=== PATIENT | male | born 1940 | race Caucasian/White ===

== ENCOUNTER 2017-10-20 13:57 | Inpatient (IN) | payer OTHER ==
[2017-10-20] MEDS: SOD CHLORIDE 0.9% 1,000 ML IV ×2 (18:58→20:05)
[2017-10-20 19:06] LABS: ADD MAN DIFF? NO
[2017-10-20 19:08] LABS: BASOPHILS % 0.2 % (0.0-2.0); HEMATOCRIT 34.9 % (42.0-52.0); HEMOGLOBIN 11.7 g/dl (14.0-18.0); LYMPHOCYTES # 1.4 10^3/ul (0.8-2.9); MEAN CORPUSCULAR HEMOGLOBIN 29.3 pg (29.0-33.0); MEAN CORPUSCULAR HGB CONC 33.5 g/dl (32.0-37.0); MEAN CORPUSCULAR VOLUME 87.3 fl (82.0-101.0); MEAN PLATELET VOLUME 8.9 fl (7.4-10.4); MONOCYTE # 1.3 10^3/ul (0.3-0.9); MONOCYTES % 7.6 % (0.0-11.0); NEUTROPHIL # 14.7 10^3/ul (1.6-7.5); NEUTROPHILS % 83.1 % (39.0-77.0); PLATELET COUNT 244 10^3/UL (140-415); RED CELL DISTRIBUTION WIDTH 13.5 % (11.5-14.5)
[2017-10-20 19:08] LABS: WHITE BLOOD COUNT 17.6 10^3/ul (4.8-10.8)
[2017-10-20 19:16] LABS: ADD UMIC YES; UR ASCORBIC ACID NEGATIVE (NEGATIVE); UR BACTERIA MANY /HPF (NONE SEEN); UR BILIRUBIN (Dip) NEGATIVE (NEGATIVE); UR BLOOD (Dip) 2+ mg/dL (NEGATIVE); UR CLARITY CLOUDY (CLEAR); UR COLOR YELLOW (YELLOW); UR GLUCOSE (Dip) 3+ mg/dL (NEGATIVE); UR KETONES (Dip) NEGATIVE (NEGATIVE); UR LEUKOCYTE ESTERASE (Dip) 3+ Leu/ul (NEGATIVE); UR NITRITE (Dip) POSITIVE (NEGATIVE); UR NONSQUAMOUS EPITHELIAL CELL <1 /HPF (NONE SEEN); UR RBC 18 /HPF (0-5); UR SPECIFIC GRAVITY (Dip) 1.014 (1.003-1.030); UR SQUAMOUS EPITHELIAL CELL FEW /HPF (FEW); UR TOTAL PROTEIN (Dip) 1+ mg/dl (NEGATIVE); UR UROBILINOGEN (Dip) NEGATIVE (NEGATIVE); UR WBC > 182 /HPF (0-5)
[2017-10-20 19:25] LABS: ALANINE AMINOTRANSFERASE 22 IU/L (13-69); ALBUMIN 4.3 g/dl (3.3-4.9); ALBUMIN/GLOBULIN RATIO 1.34; ALKALINE PHOSPHATASE 54 IU/L (42-121); ANION GAP 17 (8-16); ASPARTATE AMINO TRANSFERASE 16 IU/L (15-46); BILIRUBIN,INDIRECT 0.3 mg/dl (0-1.1); BILIRUBIN,TOTAL 0.3 mg/dl (0.2-1.3); BLOOD UREA NITROGEN 19 mg/dl (7-20); CALCIUM 8.5 mg/dl (8.4-10.2); CARBON DIOXIDE 27 mmol/L (21-31); CHLORIDE 93 mmol/L (97-110); CREATININE 1.52 mg/dl (0.61-1.24); GLUCOSE 376 mg/dl (70-220); LIPASE 29 U/L (23-300); POTASSIUM 4.3 mmol/L (3.5-5.1); SODIUM 133 mmol/L (135-144); TOTAL PROTEIN 7.5 g/dl (6.1-8.1)
[2017-10-20] MEDS: CEFTRIAXONE 1 GM/50 ML (PMX) 50 ML IVPB ×2 (19:47→19:49)
[2017-10-20] MEDS: SODIUM CHLORIDE 0.9% 1L BAG IV* (19:48)
[2017-10-20 20:15] LABS: INR 1.04; PROTIME 13.7 Sec (11.9-14.9); PT RATIO 1.1
[2017-10-20 20:16] LABS: PARTIAL THROMBOPLASTIN TIME 31.3 Sec (25.0-35.0)
[2017-10-20 20:23] LABS: LACTIC ACID 1.4 mmol/L (0.5-2.0)
[2017-10-20] MEDS ORDERED: ONDANSETRON 4 MG INJ IV (20:30)
[2017-10-20] MEDS ORDERED: ACETAMINOPHEN 325 MG TAB PO (20:30)
[2017-10-20 20:37] LABS: TROPONIN-I < 0.012 ng/ml (0.00-0.12)
[2017-10-20 21:56] LABS: LACTIC ACID 1.4 mmol/L (0.5-2.0)
[2017-10-20] MEDS: INSULIN REGULAR, HUMAN 100 UNIT/1 ML 3ML VIAL SC (22:32)
[2017-10-20] MEDS ORDERED: HYDROCODONE/APAP (5/325) TAB PO (23:30)
[2017-10-20] MEDS ORDERED: GLUCOSE GEL 15 GRAM TUBE PO ×2 (23:45)
[2017-10-20] MEDS ORDERED: GLUCAGON 1 MG INJ IM (23:45)
[2017-10-20] MEDS ORDERED: GLUCOSE GEL 15 GRAM TUBE BUCCAL (23:45)
[2017-10-20] MEDS ORDERED: DEXTROSE 50% 50 ML SYRINGE IV ×2 (23:45)
[2017-10-20 23:52] LABS: LACTIC ACID 1.3 mmol/L (0.5-2.0)
[2017-10-21] MEDS: SOD CHLORIDE 0.9% 1,000 ML IV (00:29)
[2017-10-21] MEDS: PHENAZOPYRIDINE 100 MG TAB PO ×3 (00:33→21:57)
[2017-10-21] MEDS: ACCU-CHEK XX (02:00)
[2017-10-21 06:14] LABS: ADD MAN DIFF? NO
[2017-10-21 06:26] LABS: BASOPHILS % 0.2 % (0.0-2.0); EOSINOPHILS % 0.2 % (0.0-7.0); HEMOGLOBIN 9.8 g/dl (14.0-18.0); LYMPHOCYTES % 12.2 % (15.0-51.0); MEAN CORPUSCULAR HEMOGLOBIN 29.4 pg (29.0-33.0); MEAN CORPUSCULAR HGB CONC 33.8 g/dl (32.0-37.0); MEAN CORPUSCULAR VOLUME 87.1 fl (82.0-101.0); MEAN PLATELET VOLUME 9.2 fl (7.4-10.4); MONOCYTE # 1.4 10^3/ul (0.3-0.9); MONOCYTES % 8.6 % (0.0-11.0); NEUTROPHIL # 12.5 10^3/ul (1.6-7.5); NEUTROPHILS % 78.1 % (39.0-77.0); PLATELET COUNT 201 10^3/UL (140-415); RED BLOOD COUNT 3.33 10^6/ul (4.70-6.10); RED CELL DISTRIBUTION WIDTH 13.9 % (11.5-14.5)
[2017-10-21 06:52] LABS: ALANINE AMINOTRANSFERASE 29 IU/L (13-69); ALBUMIN 3.3 g/dl (3.3-4.9); ALBUMIN/GLOBULIN RATIO 1.13; ALKALINE PHOSPHATASE 50 IU/L (42-121); ANION GAP 12 (8-16); ASPARTATE AMINO TRANSFERASE 17 IU/L (15-46); BILIRUBIN,INDIRECT 0.3 mg/dl (0-1.1); BILIRUBIN,TOTAL 0.3 mg/dl (0.2-1.3); BLOOD UREA NITROGEN 17 mg/dl (7-20); CALCIUM 8.2 mg/dl (8.4-10.2); CARBON DIOXIDE 29 mmol/L (21-31); CHLORIDE 102 mmol/L (97-110); CREATININE 1.33 mg/dl (0.61-1.24); GLUCOSE 172 mg/dl (70-220); POTASSIUM 3.7 mmol/L (3.5-5.1); SODIUM 139 mmol/L (135-144); TOTAL PROTEIN 6.2 g/dl (6.1-8.1)
[2017-10-21] MEDS: ASPIRIN (EC) 81 MG TAB PO (08:38)
[2017-10-21] MEDS: GABAPENTIN 300 MG CAP PO ×3 (08:38→20:53)
[2017-10-21] MEDS: metFORMIN 500 MG TAB PO ×2 (08:38→17:28)
[2017-10-21] MEDS: CLOPIDOGREL 75 MG TAB PO (08:38)
[2017-10-21] MEDS: FISH OIL 1,000 MG CAP PO ×2 (08:38→20:53)
[2017-10-21] MEDS: LOSARTAN 50 MG TAB PO (08:39)
[2017-10-21] MEDS: INSULIN ASPART [NOVOLOG] 3 ML PEN SC ×5 (08:48→21:00)
[2017-10-21] MEDS: ACETAMINOPHEN 325 MG TAB PO (20:53)
[2017-10-21] MEDS: ATORVASTATIN 20 MG TAB PO (20:53)
[2017-10-21] MEDS: CEFTRIAXONE 1 GM/50 ML (PMX) 50 ML IVPB (20:53)
[2017-10-21] MEDS: TERAZOSIN 5 MG CAP PO (20:54)
[2017-10-21] MEDS: INSULIN GLARGINE [LANtus] 3 ML PEN SC (21:03)
[2017-10-21] MEDS: morphine 2 MG INJ IV (23:37)
[2017-10-22 00:08] LABS: TROPONIN-I 0.017 ng/ml (0.00-0.12)
[2017-10-22] MEDS: ACCU-CHEK XX (02:00)
[2017-10-22] MEDS: SOD CHLORIDE 0.9% 1,000 ML IV ×2 (04:03→23:30)
[2017-10-22 06:22] LABS: ADD MAN DIFF? NO
[2017-10-22 06:31] LABS: BASOPHILS % 0.3 % (0.0-2.0); EOSINOPHILS # 0.3 10^3/ul (0.0-0.5); EOSINOPHILS % 2.5 % (0.0-7.0); HEMATOCRIT 28.2 % (42.0-52.0); HEMOGLOBIN 9.4 g/dl (14.0-18.0); LYMPHOCYTES # 1.7 10^3/ul (0.8-2.9); LYMPHOCYTES % 16.4 % (15.0-51.0); MEAN CORPUSCULAR HEMOGLOBIN 29.4 pg (29.0-33.0); MEAN CORPUSCULAR HGB CONC 33.3 g/dl (32.0-37.0); MEAN CORPUSCULAR VOLUME 88.1 fl (82.0-101.0); MEAN PLATELET VOLUME 9.4 fl (7.4-10.4); MONOCYTE # 0.9 10^3/ul (0.3-0.9); MONOCYTES % 8.5 % (0.0-11.0); NEUTROPHIL # 7.5 10^3/ul (1.6-7.5); NEUTROPHILS % 71.8 % (39.0-77.0); PLATELET COUNT 208 10^3/UL (140-415)
[2017-10-22 06:31] LABS: WHITE BLOOD COUNT 10.4 10^3/ul (4.8-10.8)
[2017-10-22 07:22] LABS: ANION GAP 13 (8-16); BLOOD UREA NITROGEN 19 mg/dl (7-20); CARBON DIOXIDE 30 mmol/L (21-31); CHLORIDE 103 mmol/L (97-110); GLUCOSE 103 mg/dl (70-220); POTASSIUM 4.1 mmol/L (3.5-5.1); SODIUM 142 mmol/L (135-144)
[2017-10-22] MEDS: ASPIRIN (EC) 81 MG TAB PO (08:03)
[2017-10-22] MEDS: CLOPIDOGREL 75 MG TAB PO (08:03)
[2017-10-22] MEDS: FISH OIL 1,000 MG CAP PO ×2 (08:03→20:16)
[2017-10-22] MEDS: GABAPENTIN 300 MG CAP PO ×3 (08:03→20:17)
[2017-10-22] MEDS: LOSARTAN 50 MG TAB PO (08:04)
[2017-10-22] MEDS: metFORMIN 500 MG TAB PO ×2 (08:04→17:44)
[2017-10-22] MEDS: INSULIN ASPART [NOVOLOG] 3 ML PEN SC ×5 (08:05→20:31)
[2017-10-22] MEDS: PHENAZOPYRIDINE 100 MG TAB PO (12:45)
[2017-10-22] MEDS: CYCLOBENZAPRINE 10 MG TAB PO ×2 (12:45→21:49)
[2017-10-22] MEDS: ACETAMINOPHEN 325 MG TAB PO ×2 (12:46→20:26)
[2017-10-22] MEDS: CEFTRIAXONE 1 GM/50 ML (PMX) 50 ML IVPB (20:16)
[2017-10-22] MEDS: ATORVASTATIN 20 MG TAB PO (20:17)
[2017-10-22] MEDS: TERAZOSIN 5 MG CAP PO (20:17)
[2017-10-22] MEDS: INSULIN GLARGINE [LANtus] 3 ML PEN SC (20:30)
[2017-10-22] MEDS ORDERED: PHENAZOPYRIDINE 100 MG TAB PO (21:10)
[2017-10-23] MEDS: ACCU-CHEK XX ×2 (02:00→20:44)
[2017-10-23] MEDS: SOD CHLORIDE 0.9% 1,000 ML IV ×2 (05:30→23:30)
[2017-10-23 06:11] LABS: ADD MAN DIFF? NO
[2017-10-23 06:24] LABS: WHITE BLOOD COUNT 9.4 10^3/ul (4.8-10.8)
[2017-10-23 06:24] LABS: BASOPHILS % 0.4 % (0.0-2.0); EOSINOPHILS # 0.1 10^3/ul (0.0-0.5); EOSINOPHILS % 1.4 % (0.0-7.0); HEMATOCRIT 28.1 % (42.0-52.0); HEMOGLOBIN 9.7 g/dl (14.0-18.0); LYMPHOCYTES # 1.9 10^3/ul (0.8-2.9); MEAN CORPUSCULAR HEMOGLOBIN 30.1 pg (29.0-33.0); MEAN CORPUSCULAR HGB CONC 34.5 g/dl (32.0-37.0); MEAN CORPUSCULAR VOLUME 87.3 fl (82.0-101.0); MEAN PLATELET VOLUME 9.1 fl (7.4-10.4); MONOCYTE # 1.1 10^3/ul (0.3-0.9); MONOCYTES % 11.9 % (0.0-11.0); NEUTROPHIL # 6.2 10^3/ul (1.6-7.5); NEUTROPHILS % 65.6 % (39.0-77.0); PLATELET COUNT 218 10^3/UL (140-415); RED BLOOD COUNT 3.22 10^6/ul (4.70-6.10); RED CELL DISTRIBUTION WIDTH 13.6 % (11.5-14.5)
[2017-10-23 07:04] LABS: ANION GAP 14 (8-16); BLOOD UREA NITROGEN 18 mg/dl (7-20); CALCIUM 8.3 mg/dl (8.4-10.2); CARBON DIOXIDE 28 mmol/L (21-31); CHLORIDE 102 mmol/L (97-110); CREATININE 1.36 mg/dl (0.61-1.24); GLUCOSE 95 mg/dl (70-220); POTASSIUM 3.8 mmol/L (3.5-5.1); SODIUM 140 mmol/L (135-144)
[2017-10-23] MEDS: INSULIN ASPART [NOVOLOG] 3 ML PEN SC ×5 (08:30→20:43)
[2017-10-23] MEDS: metFORMIN 500 MG TAB PO ×2 (09:27→18:01)
[2017-10-23] MEDS: GABAPENTIN 300 MG CAP PO ×3 (09:27→20:41)
[2017-10-23] MEDS: ASPIRIN (EC) 81 MG TAB PO (09:27)
[2017-10-23] MEDS: CLOPIDOGREL 75 MG TAB PO (09:28)
[2017-10-23] MEDS: FISH OIL 1,000 MG CAP PO ×2 (09:29→20:39)
[2017-10-23] MEDS: CYCLOBENZAPRINE 10 MG TAB PO ×3 (09:29→20:39)
[2017-10-23] MEDS: LOSARTAN 50 MG TAB PO (09:32)
[2017-10-23] MEDS: ONDANSETRON 4 MG INJ IV (17:59)
[2017-10-23] MEDS: INSULIN GLARGINE [LANtus] 3 ML PEN SC (20:39)
[2017-10-23] MEDS: TERAZOSIN 5 MG CAP PO (20:40)
[2017-10-23] MEDS: ATORVASTATIN 20 MG TAB PO (20:41)
[2017-10-23] MEDS: CEFTRIAXONE 1 GM/50 ML (PMX) 50 ML IVPB (20:41)
[2017-10-24] MEDS: LEVOFLOXACIN 500 MG TAB PO (05:38)
[2017-10-24 06:19] LABS: ADD MAN DIFF? NO
[2017-10-24 06:46] LABS: ABNORMAL IP MESSAGE 1; BASOPHILS % 0.2 % (0.0-2.0); EOSINOPHILS # 0.1 10^3/ul (0.0-0.5); EOSINOPHILS % 1.2 % (0.0-7.0); HEMATOCRIT 29.2 % (42.0-52.0); HEMOGLOBIN 9.9 g/dl (14.0-18.0); LYMPHOCYTES # 2.2 10^3/ul (0.8-2.9); LYMPHOCYTES % 22.6 % (15.0-51.0); MEAN CORPUSCULAR HEMOGLOBIN 29.2 pg (29.0-33.0); MEAN CORPUSCULAR HGB CONC 33.9 g/dl (32.0-37.0); MEAN CORPUSCULAR VOLUME 86.1 fl (82.0-101.0); MEAN PLATELET VOLUME 8.9 fl (7.4-10.4); MONOCYTE # 1.5 10^3/ul (0.3-0.9); MONOCYTES % 15.6 % (0.0-11.0); NEUTROPHIL # 5.8 10^3/ul (1.6-7.5); NEUTROPHILS % 60.2 % (39.0-77.0); PLATELET COUNT 236 10^3/UL (140-415); POSITIVE DIFF @See below; RED BLOOD COUNT 3.39 10^6/ul (4.70-6.10); RED CELL DISTRIBUTION WIDTH 13.4 % (11.5-14.5)
[2017-10-24 06:46] LABS: WHITE BLOOD COUNT 9.7 10^3/ul (4.8-10.8)
[2017-10-24] MEDS: INSULIN ASPART [NOVOLOG] 3 ML PEN SC ×5 (08:15→21:08)
[2017-10-24] MEDS: metFORMIN 500 MG TAB PO ×2 (08:15→18:00)
[2017-10-24] MEDS: ASPIRIN (EC) 81 MG TAB PO (09:29)
[2017-10-24] MEDS: FISH OIL 1,000 MG CAP PO ×2 (09:29→21:01)
[2017-10-24] MEDS: GABAPENTIN 300 MG CAP PO ×3 (09:29→21:01)
[2017-10-24] MEDS: CLOPIDOGREL 75 MG TAB PO (09:29)
[2017-10-24] MEDS: CYCLOBENZAPRINE 10 MG TAB PO ×3 (09:30→21:01)
[2017-10-24] MEDS: LOSARTAN 50 MG TAB PO (09:31)
[2017-10-24] MEDS: SOD CHLORIDE 0.9% 1,000 ML IV ×2 (09:39→23:30)
[2017-10-24 19:14] LABS: AADO2 Arterial 38.8 mmHg (7.0-24.0); Allen Test ACCEPTAB; Arterial Base Excess 1.7 mmol/L (-3.0-3); Arterial Blood Gas Oxygen Sat 89.7 mmHG (95.0-100.0); Arterial COHb 0.3 % (0.0-3.0); Arterial Fraction of Oxyhgb 89.2 % (93.0-99.0); Arterial HCO3 26.7 mmol/L (22.0-26.0); Arterial MetHb 0.3 % (0.0-1.5); Arterial Total Hemglobin 10.4 g/dl (12.0-18.0); Arterial pCO2 43.6 mmhg (35-45); MODE ROOM AIR; Site Right Radial
[2017-10-24] MEDS: ATORVASTATIN 20 MG TAB PO (21:01)
[2017-10-24] MEDS: TERAZOSIN 5 MG CAP PO (21:01)
[2017-10-24] MEDS: INSULIN GLARGINE [LANtus] 3 ML PEN SC (21:09)
[2017-10-25] MEDS: ACCU-CHEK XX (02:38)
[2017-10-25] MEDS ORDERED: hydrALAzine 20 MG INJ IV (04:00)
[2017-10-25] MEDS: LEVOFLOXACIN 500 MG TAB PO (05:08)
[2017-10-25] MEDS: INSULIN ASPART [NOVOLOG] 3 ML PEN SC ×3 (08:09→12:37)
[2017-10-25] MEDS: CYCLOBENZAPRINE 10 MG TAB PO ×2 (08:57→13:39)
[2017-10-25] MEDS: GABAPENTIN 300 MG CAP PO ×2 (08:57→13:39)
[2017-10-25] MEDS: metFORMIN 500 MG TAB PO (08:57)
[2017-10-25] MEDS: FISH OIL 1,000 MG CAP PO (08:58)
[2017-10-25] MEDS: CLOPIDOGREL 75 MG TAB PO (08:58)
[2017-10-25] MEDS: LOSARTAN 50 MG TAB PO (08:59)
[2017-10-25] MEDS: FUROSEMIDE 20 MG INJ IV (09:18)
[2017-10-25] MEDS: ASPIRIN (EC) 81 MG TAB PO (09:18)
== END 2017-10-25 18:05 | disposition home or self-care (01) | DRG 872 ==
LOC: E/R 13:57 → MS2 20:06
DX: A41.9 Sepsis, unspecified organism (principal); N17.9 Acute kidney failure, unspecified; E11.22 Type 2 diabetes mellitus with diabetic chronic kidney disease; N39.0 Urinary tract infection, site not specified; I12.9 Hypertensive chronic kidney disease with stage 1 through stage 4 chronic kidney disease, or unspecified chronic kidney disease; B96.20 Unspecified Escherichia coli [E. coli] as the cause of diseases classified elsewhere; N18.9 Chronic kidney disease, unspecified; N40.0 Benign prostatic hyperplasia without lower urinary tract symptoms; I25.10 Atherosclerotic heart disease of native coronary artery without angina pectoris; D64.9 Anemia, unspecified; E66.9 Obesity, unspecified; Z68.28 Body mass index [BMI] 28.0-28.9, adult; Z79.82 Long term (current) use of aspirin; Z79.4 Long term (current) use of insulin; Z87.891 Personal history of nicotine dependence; Z95.5 Presence of coronary angioplasty implant and graft; Z86.73 Personal history of transient ischemic attack (TIA), and cerebral infarction without residual deficits
CPT/HCPCS: 36600; 71045; 71046; 76775; 76856; 80048; 80053; 81001; 82803; 82962; 83036; 83605; 83690; 84484; 85025; 85610; 85730; 87040; 87086; 87400; 93005; 96372; 96374; 99291-25; J1940